=== PATIENT | female | born 1950 | race Caucasian/White ===

== ENCOUNTER 2023-08-31 09:37 | Outpatient (OUT) | payer MEDICARE, SELFPAY ==
--- NOTE | 2023-08-31 | XR_ITS ---
[address] [address] Patient Name: COLLIN SAL MRN: [id number] date: 1950 Sex: F Assigned Patient Location: Current Patient Location: Accession/Order Number: [id number] Exam Date: 08/31/2023 09:39 Report Date: 08/31/2023 12:15 At the request of: BRIA IBARRA Procedure: XR knee LT 4V PROCEDURE: XR knee LT 4V COMPARISON: None. HISTORY: LEFT KNEE PAIN FINDINGS: BONES:Mild tricompartmental osteoarthropathy with marginal osteophyte formation. Moderate enthesopathic spurring of the patella at the quadriceps and patellar insertions SOFT TISSUES:Negative. No visible soft tissue swelling. EFFUSION:None visible. OTHER: Negative. XR/XR knee LT 4V IMPRESSION: Mild osteoarthritis Electronically authenticated by: GLORIA AGARWAL Date: 08/31/2023 12:15
== END 2023-08-31 09:38 | disposition home or self-care (01) ==
LOC: EC 09:37
PROVIDERS: PCP Orthopaedic Surgery; Visit Provider Orthopaedic Surgery
DX: M25.562 Pain in left knee (principal)
CPT/HCPCS: 73564